=== PATIENT | female | born 1945 | race Two or more races ===

== ENCOUNTER 2020-02-16 22:16 | Inpatient (IN) | payer BC ==
[~2020-02-16] VITALS: Ht 172.7 cm; Wt 60.3 kg
--- NOTE | 2020-02-16 22:18 | NUR ---
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 PT GIVEN 6MG ADENOSINE BY PARAMEDICS. PT'S HR UPON ARRIVAL 96. NO MEDICAL COMPLAINTS AT THIS TIME. PT AAOX4, RESPIRATIONS EVEN AND UNLABORED ON RA W/ AND NOTED. Addendum: 02/17/20 at 0150 by RENETTA PT TRANSFERRED TO ROOM IN STABLE CONDITION VIA ACLS PROTOCOL
[2020-02-16] MEDS ORDERED: IV NS 0.9% 500 ML BAG IV ONE (22:30)
--- NOTE | 2020-02-16 22:30 | NUR ---
WELDER OPERATOR AT BEDSIDE FOR BLOOD DRAW
[2020-02-16 22:49] LABS: BASOPHILS # (AUTO) 0.1 /CMM (0.0-0.2); BASOPHILS % (AUTO) 0.8 % (0.0-2.0); EOSINOPHILS % (AUTO) 2.5 % (0.0-6.0); HEMATOCRIT 29 % (33-45); HEMOGLOBIN 8.8 g/dL (11.5-14.8); LYMPHOCYTES # (AUTO) 0.2 /CMM (0.8-4.8); MEAN CORPUSCULAR HGB CONC 30 g/dl (31.0-36.0); MEAN CORPUSCULAR VOLUME 96 fL (82-100); MONOCYTES # (AUTO) 1.1 /CMM (0.1-1.30); MONOCYTES % (AUTO) 9.7 % (2.0-12.0); NEUTROPHILS # (AUTO) 9.8 /CMM (1.8-8.9); PLATELET COUNT (AUTO) 106 /CMM (150-450); WHITE BLOOD COUNT (AUTO) 11.6 K/uL (4.3-11.0)
[2020-02-16 23:00] LABS: CALCIUM, SERUM 8.5 mg/dL (8.5-10.1); CREATININE 1.2 mg/dL (0.6-1.3); POTASSIUM 4.7 mmol/L (3.5-5.1)
[2020-02-16 23:17] LABS: ALBUMIN 2.2 g/dL (3.4-5.0); BILIRUBIN,DIRECT 0.2 mg/dL (0.0-0.2); BILIRUBIN,TOTAL 0.4 mg/dL (0.2-1.0); TOTAL PROTEIN, SERUM 6.6 g/dL (6.4-8.2)
--- NOTE | 2020-02-16 23:35 | NUR ---
TELE 328-2
[2020-02-16] MEDS ORDERED: METO-295 PO (23:37)
[2020-02-16] MEDS ORDERED: CROM10DR2 OP (23:37)
[2020-02-16] MEDS ORDERED: ALLO300T2 PO (23:37)
[2020-02-16] MEDS ORDERED: FAMO20TA8 PO (23:37)
[2020-02-16] MEDS ORDERED: ZINC220T4 PO (23:37)
[2020-02-16] MEDS ORDERED: POLY17PO4 PO (23:37)
[2020-02-16] MEDS ORDERED: METO25TA4 PO (23:37)
[2020-02-16] MEDS ORDERED: VIT500LI PO (23:37)
[2020-02-16] MEDS ORDERED: PRED5TAB48 PO (23:37)
[2020-02-16 23:44] LABS: D-DIMER 16.7 mg/L(FEU (0.17-0.50)
[2020-02-16] MEDS ORDERED: IV NS 0.9% 250 ML IV ONE (23:57)
[2020-02-16] MEDS ORDERED: IOHEXOL-350 100 ML VIAL IV ONE (23:57)
[2020-02-16] MEDS ORDERED: CT SWABBABLE VALVE TRANS SET 1 EA INFUS.SET MC ONE (23:57)
[2020-02-17] MEDS ORDERED: ONDANSETRON HCL/PF 4 MG/2 ML VIAL IVP PRN
[2020-02-17] MEDS ORDERED: ALBUTEROL SULFATE 8 GM HFA.AER.AD IH PRN
[2020-02-17] MEDS ORDERED: MAGNESIUM HYDROXIDE 30 ML UDC PO PRN
[2020-02-17] MEDS ORDERED: LORAZEPAM 0.5 MG TABLET PO PRN
[2020-02-17] MEDS ORDERED: ZOLPIDEM TARTRATE 5 MG TABLET PO PRN
[2020-02-17] MEDS ORDERED: ACETAMINOPHEN 325 MG TABLET PO PRN
--- NOTE | 2020-02-17 00:15 | NUR ---
PER PT, SHE WAS UNDECIDED IF SHE IS GOING TO DO THE CT OR NOT. PER PT SHE IS GOING TO CALL HER PMD.
--- NOTE | 2020-02-17 00:23 | NUR ---
BED 115-2
--- NOTE | 2020-02-17 00:35 | NUR ---
PT IS STILL ON THE PHONE W/ HER HER PMD IN REGARDS IF PT CAN HAVE CT SCAN OR NOT.
--- NOTE | 2020-02-17 00:50 | NUR ---
PT AGREED W/ CT ANGIOGRAM.
--- NOTE | 2020-02-17 00:55 | NUR ---
PT TAKEN TO CT
[2020-02-17 01:20] LABS: C-REACTIVE PROTEIN 4.8 mg/dL (0.0-0.9); CREATINE KINASE, TOTAL 29 U/L (26-192); FERRITIN 10556 ng/mL (8-388)
--- NOTE | 2020-02-17 01:20 | NUR ---
PT BACK FROM CT
--- NOTE | 2020-02-17 01:33 | NUR ---
300 ML URINE OUTPUT NOTED. YELLOW, CLEAR, NO ODOR.
[2020-02-17 01:40] LABS: APPEARANCE,URINE Clear (CLEAR); BILIRUBIN,URINE Negative (NEGATIVE); BLOOD, URINE Moderate Ery/uL (NEGATIVE); COLOR,URINE Dark (YELLOW); KETONES,URINE Negative (NEGATIVE); LEUKOCYTE ESTERASE ,URINE Negative (NEGATIVE); NITRITE, URINE Negative (NEGATIVE); PH,URINE 5.5 (5.0-8.0); PROTEIN,URINE 100 mg/dl (NEGATIVE); UGLUCOSE Negative (NEGATIVE); UROBILINOGEN,URINE 0.2 EU/dL (0.2)
[2020-02-17 01:50] VITALS: BP 119/76
--- NOTE | 2020-02-17 01:50 | NUR ---
RN NOTE RECEIVED PT FROM ER VIA GURNEY ACCOMPANIED BY 2 RNS AND TRANSFERRED TO BED VIA 2 PERSON ASSIST. PT IS ALERT AND ORIENTED X 3. PT ON ROOM AIR WITH RESPIRATIONS EVEN AND UNLABORED. COMPREHENSIVE PHYSICAL ASSESSMENT DONE. CALL LIGHT WITHIN REACH, SAFETY MEASURES IN PLACE, WILL MONITOR.
[2020-02-17 02:22] LABS: BACTERIA,URINE Few /HPF (None Seen); SQUAMOUS EPITHELIAL CELL,UR Few /HPF (None Seen); WBC,URINE 21-50 /HPF (0-3)
[2020-02-17] MEDS ORDERED: FUROSEMIDE 40 MG/4 ML VIAL IV ONE (02:30)
[2020-02-17] MEDS ORDERED: PIPERACILLIN /TAZOBACTAM 3.375 G in IV D5W 100 ML IV ONE (02:30)
[2020-02-17] MEDS ORDERED: VANCOMYCIN 1.5 GM in IV D5W 500 ML IV ONE (03:00)
--- NOTE | 2020-02-17 03:29 | NUR ---
0329 CRITICAL LACTIC ACID RESULT 2.7 RELAYED TO TRICIA CHURCHILL WITH NO NEW ORDER MADE.
[2020-02-17] MEDS ORDERED: VANCOMYCIN 1 GM VIAL ONE (03:56)
[2020-02-17] MEDS ORDERED: PIPERACILLIN /TAZOBACTAM 3.375 G VIAL IV ONE (03:56)
[2020-02-17 04:00] VITALS: BP 121/68
[2020-02-17 04:32] LABS: BASOPHILS # (AUTO) 0.1 /CMM (0.0-0.2); BASOPHILS % (AUTO) 0.7 % (0.0-2.0); EOSINOPHILS % (AUTO) 5.4 % (0.0-6.0); HEMATOCRIT 27 % (33-45); HEMOGLOBIN 8.5 g/dL (11.5-14.8); LYMPHOCYTES # (AUTO) 0.3 /CMM (0.8-4.8); LYMPHOCYTES % (AUTO) 2.3 % (20.0-44.0); MEAN CORPUSCULAR HGB CONC 31 g/dl (31.0-36.0); MEAN CORPUSCULAR VOLUME 94 fL (82-100); MONOCYTES # (AUTO) 1.2 /CMM (0.1-1.30); MONOCYTES % (AUTO) 10.7 % (2.0-12.0); NEUTROPHILS # (AUTO) 9.2 /CMM (1.8-8.9); NEUTROPHILS % (AUTO) 80.9 % (43.0-81.0); PLATELET COUNT (AUTO) 93 /CMM (150-450); RED BLOOD CELL COUNT(AUTO) 2.88 MIL/uL (4.0-5.2); WHITE BLOOD COUNT (AUTO) 11.4 K/uL (4.3-11.0)
[2020-02-17 04:45] LABS: ALBUMIN 2.2 g/dL (3.4-5.0); ALKALINE PHOSPHATASE 144 U/L (46-116); ASPARTATE AMINOTRANSFERASE 11 U/L (15-37); BILIRUBIN,TOTAL 0.5 mg/dL (0.2-1.0); CALCIUM, SERUM 7.5 mg/dL (8.5-10.1); CARBON DIOXIDE 25 mmol/L (21-32); CHLORIDE 109 mmol/L (98-107); GLUCOSE 106 mg/dL (74-106); PHOSPHORUS 4.1 mg/dL (2.5-4.9); POTASSIUM 4.6 mmol/L (3.5-5.1); SODIUM SERUM 144 mmol/L (136-145); TOTAL PROTEIN, SERUM 6.2 g/dL (6.4-8.2); UREA NITROGEN, BLOOD 24 mg/dL (7-18)
[2020-02-17 04:46] LABS: MAGNESIUM 1.2 mg/dL (1.8-2.4)
[2020-02-17 04:53] LABS: CHOLESTEROL 63 mg/dL (<200); HDL CHOLESTEROL 31 mg/dL (40-60); LDL 29 mg/dL (0-99); LYMPHOCYTES % (MANUAL) 3 % (16-48); MONOCYTES % (MANUAL) 8 % (0-11.0); THYROID STIMULATING HORMONE 2.098 uIU/mL (0.358-3.74); TRIGLYCERIDES 63 mg/dL (30-150)
[2020-02-17 04:54] LABS: EOSINOPHILS % (MANUAL) 3 % (0-4); NEUTROPHILS % (MANUAL) 86 (42-76)
[2020-02-17 04:55] LABS: ALANINE AMINOTRANSFERASE 6 U/L (12-78)
--- NOTE | 2020-02-17 04:55 | NUR ---
4268 TRICIA CHURCHILL MADE AWARE OF CRITICAL TROP .091 WITH NO ORDER MADE.
--- NOTE | 2020-02-17 06:38 | NUR ---
RN NOTE NOTIFIED PHARMACY THAT ZOSYN 3.375G IV WAS GIVEN LATE.
--- NOTE | 2020-02-17 06:48 | NUR ---
RN CLOSING NOTE PT ALERT AND ORIENTED RESTING IN BED IN SEMI MORAN'S POSITION. RESPIRATIONS EVEN AND UNLABORED WHILE ON ROOM AIR. ALL NEEDS MET AND ATTENDED TO. CALL LIGHT WITHIN REACH, SAFETY MEASURES IN PLACE, WILL ENDORSE TO MORNING RN FOR CONTINUATION OF CARE.
--- NOTE | 2020-02-17 07:45 | NUR ---
SECURITY ASSURANCE SPECIALIST OPENING NOTES: RECEIVED PT ALERT AND ORIENTEDX4 IN BED RESTING COMFORTABLY. PATIENT IN NO S/SX OF ACUTE DISTRESS AT THIS TIME. NO SOB NOTED. PATIENT'S BREATHING IS EVEN AND UNLABORED IN RA. PATIENT ON CARDIAC MONITORING READING SINUS RHYTHM HR IS @92. NOTED IV SITE ON R WRIST 20 G ; PATENT IN INTACT. PATIENT HAS COLOSTOMY BAG IN PLACED; INTACT. PATIENT HAS SACRAL SCAR AND BILATERAL KNEE SCABS. SAFETY MEASURES HAVE BEEN PROVIDED AND IMPLEMENTED. PATIENT BED ALARM IS ON. HEAD OF BED ELEVATED. BED IS LOCKED, IN LOWEST POSITION AND SIDE RAILS UP. CALL LIGHT WITHIN REACH OF THE PATIENT. WILL CONTINUE TO MONITOR AND REASSESS FOR ANY CHANGES.
[2020-02-17 08:00] VITALS: BP_SYST 120; BP_SYST 122; BP_DIAS 66
[2020-02-17] MEDS ORDERED: MAG30ORA PO (08:29)
[2020-02-17] MEDS ORDERED: RUXOLITINIB PO (08:29)
[2020-02-17] MEDS ORDERED: BISA10SU11 RC (08:29)
[2020-02-17] MEDS ORDERED: MAGN400O6 PO (08:29)
[2020-02-17] MEDS ORDERED: ACET-868 PO (08:29)
[2020-02-17] MEDS ORDERED: PRED10TA PO (08:29)
[2020-02-17] MEDS ORDERED: DIPH1TAB PO (08:29)
[2020-02-17] MEDS ORDERED: FOLI0.4T2 PO (08:29)
[2020-02-17] MEDS ORDERED: NA P133E RC (08:29)
[2020-02-17] MEDS ORDERED: CROM20SO PO (08:29)
[2020-02-17] MEDS ORDERED: ALBU18HF2 IH (08:29)
[2020-02-17] MEDS ORDERED: METOCLOPRAMIDE HCL 10 MG TABLET PO SCH (09:00)
[2020-02-17] MEDS: ASCORBIC ACID 500 MG TABLET PO SCH (09:33)
[2020-02-17] MEDS: POLYETHYLENE GLYCOL 3350 17 GM POWD.PACK PO SCH (09:33)
[2020-02-17] MEDS: predniSONE 10 MG TABLET PO SCH (09:33)
[2020-02-17] MEDS: FAMOTIDINE (20 MG) 20 MG TABLET PO SCH ×2 (09:33→16:13)
[2020-02-17] MEDS: Magnesium 1GM/D5W 100ML PREMIX 100 ML IV SCH ×4 (09:34→13:09)
[2020-02-17] MEDS: ZINC SULFATE 220 MG CAPSULE PO SCH (09:34)
[2020-02-17] MEDS: ALLOPURINOL 100 MG TABLET PO SCH (09:34)
[2020-02-17 09:59] LABS: THYROID STIMULATING HORMONE 2.092 uIU/mL (0.358-3.74)
--- NOTE | 2020-02-17 10:23 | NUR ---
WOUND CARE CONSULT: REVIEWED CHART, PHOTO DOCUMENTATION AND NURSING DOCUMENTATION WHICH SHOWS SACRAL SCAR, PRESENT ON ADMISSION. RECOMMENDATIONS MADE FOR SKIN PROTECTION. DR BLANCO NOTIFIED OF SURGICAL CONSULT REQUEST. IN AGREEMENT WITH PLAN OF CARE. CURRENT JIM SCORE IS 15.
[2020-02-17] MEDS: Z GUARD REMEDY 2 OZ OINT TP SCH (10:30)
[2020-02-17] MEDS ORDERED: Z GUARD REMEDY 2 OZ OINT TP PRN (10:30)
[2020-02-17] MEDS ORDERED: CROMOLYN SODIUM OP SCH (11:30)
--- NOTE | 2020-02-17 11:39 | NUR ---
FOLLOW UP COVID RESULT STILL PENDING.
[2020-02-17 12:00] VITALS: BP 122/70
[2020-02-17] MEDS: PIPERACILLIN /TAZOBACTAM 3.375 G in IV D5W 50 ML IV SCH ×3 (12:16→23:48)
[2020-02-17] MEDS ORDERED: FEE PK DOSING 1 MIN EA MC ONE (14:34)
[2020-02-17 16:00] VITALS: BP 122/63
[2020-02-17] MEDS: THERAHONEY GEL 1.5 OZ TUBE TP SCH (16:00)
[2020-02-17] MEDS: ENOXAPARIN SODIUM 40 MG/0.4 ML DISP.SYRIN SQ SCH (16:13)
--- NOTE | 2020-02-17 16:16 | NUR ---
FOLLOWUP COVID RESULTS STILL PENDING.
--- NOTE | 2020-02-17 17:10 | NUR ---
RN NOTE MRSA SWAB DONE, NOTIFIED LAB TO COLLECT THE SPECIMEN.
[2020-02-17] MEDS: METOPROLOL SUCCINATE 25 MG TAB.SR.24H PO SCH (17:27)
--- NOTE | 2020-02-17 17:55 | NUR ---
Called pharmacy to verify if vancomycin can be administered without vanco trough level. Pharamcy staff said ok to give. Will administer as ordered.
[2020-02-17] MEDS: VANCOMYCIN 0.75 GM in IV D5W 250 ML IV SCH (18:10)
--- NOTE | 2020-02-17 18:32 | NUR ---
THEOLOGY PROFESSOR - CLOSING NOTES: PATIENT IN BED RESTING COMFORTABLY. PATIENT IN NO ACUTE DISTRESS. NO SOB NOTED, PT BREATHING IS EVEN AND UNLABORED. PATIENT IS ON ROOM AIR, SP02 >95%. PATIENT ON CARDIAC MONITORING READING SINUS RHYTHM HR IS @96. PATIENT STATES NO PAIN AT THIS TIME. PATIENT IS CLEAN , DRY AND COMFORTABLE THROUGHOUT THE SHIFT. NEEDS AND CONCERNS ADDRESSED. SAFETY MEASURES IN PLACED. PATIENT BED IS LOCKED AND IN LOWEST POSITION. SIDE RAILS UP. CALL LIGHT WITHIN REACH OF THE PATIENT. WILL ENDORSE TO PM SHIFT FOR FELIPE.
[2020-02-17 20:00] VITALS: BP 114/63
[2020-02-18] VITALS: BP 122/68
[2020-02-18 04:00] VITALS: BP 121/74
--- NOTE | 2020-02-18 05:15 | NUR ---
rn notes alert, awake in bed watching tv. oriented x 4. no distress noted. breathing even and unlabored, room air well tolerated no complaint of pain or discomfort. vital signs wnl. lab called at 0515 for negative covid result. kept clean and dry. will endorse to next shift for continuity of care.
--- NOTE | 2020-02-18 05:18 | NUR ---
RN NOTES 0515 COVID RESULT NEGATIVE. KT, HOT DOG VENDOR NOTIFIED. ASKED DR. PATI BULL IF OK TO TRANSFER TO NON COVID UNIT. PER PATI, TO WAIT FOR DAY PHYSICIAN TO ASSESS THE PATIENT FIRST. KT NOTIFIED. PRIMARY RN, KLEVER MADE AWARE
[2020-02-18] MEDS: VANCOMYCIN 0.75 GM in IV D5W 250 ML IV SCH ×2 (05:28→17:20)
[2020-02-18] MEDS: PIPERACILLIN /TAZOBACTAM 3.375 G in IV D5W 50 ML IV SCH ×3 (05:28→17:22)
[2020-02-18 06:23] LABS: BASOPHILS # (AUTO) 0.1 /CMM (0.0-0.2); BASOPHILS % (AUTO) 0.4 % (0.0-2.0); EOSINOPHILS % (AUTO) 5.2 % (0.0-6.0); HEMATOCRIT 27 % (33-45); HEMOGLOBIN 8.4 g/dL (11.5-14.8); LYMPHOCYTES # (AUTO) 0.2 /CMM (0.8-4.8); LYMPHOCYTES % (AUTO) 1.3 % (20.0-44.0); MEAN CORPUSCULAR HGB CONC 31 g/dl (31.0-36.0); MEAN CORPUSCULAR VOLUME 94 fL (82-100); MONOCYTES # (AUTO) 1.5 /CMM (0.1-1.30); NEUTROPHILS # (AUTO) 11.5 /CMM (1.8-8.9); NEUTROPHILS % (AUTO) 82.1 % (43.0-81.0); PLATELET COUNT (AUTO) 94 /CMM (150-450); RED BLOOD CELL COUNT(AUTO) 2.87 MIL/uL (4.0-5.2)
[2020-02-18 07:03] LABS: ALBUMIN 2.1 g/dL (3.4-5.0); BILIRUBIN,TOTAL 0.5 mg/dL (0.2-1.0); CALCIUM, SERUM 7.6 mg/dL (8.5-10.1); CREATININE 0.9 mg/dL (0.6-1.3); MAGNESIUM 1.7 mg/dL (1.8-2.4); PHOSPHORUS 3.7 mg/dL (2.5-4.9); POTASSIUM 3.6 mmol/L (3.5-5.1); TOTAL PROTEIN, SERUM 6.4 g/dL (6.4-8.2)
--- NOTE | 2020-02-18 07:30 | NUR ---
Tele/RN Opening note Received patient AO x 3-4, able to responds all stimuli. Pt denies pain or any discomfort, skin is warm to touch, kept clean/dry. Respiratory even and unlabored with room air, no sob or distress observed. Keep low portion of the bed with locked wheel and elevated head of bed. Call light within reach, will continue to monitor.
[2020-02-18 08:00] VITALS: BP 116/72
[2020-02-18] MEDS: ZINC SULFATE 220 MG CAPSULE PO SCH (08:24)
[2020-02-18] MEDS: FAMOTIDINE (20 MG) 20 MG TABLET PO SCH ×2 (08:24→17:22)
[2020-02-18] MEDS: ASCORBIC ACID 500 MG TABLET PO SCH (08:24)
[2020-02-18] MEDS: ALLOPURINOL 100 MG TABLET PO SCH (08:24)
[2020-02-18] MEDS: POLYETHYLENE GLYCOL 3350 17 GM POWD.PACK PO SCH (08:25)
[2020-02-18] MEDS: Z GUARD REMEDY 2 OZ OINT TP SCH (08:25)
[2020-02-18] MEDS: THERAHONEY GEL 1.5 OZ TUBE TP SCH (08:25)
[2020-02-18] MEDS: predniSONE 10 MG TABLET PO SCH (08:25)
[2020-02-18] MEDS: Magnesium 1GM/D5W 100ML PREMIX 100 ML IV SCH ×2 (10:21→11:01)
[2020-02-18 10:35] VITALS: BP 116/72
--- NOTE | 2020-02-18 11:40 | NUR ---
Patient transferred 3W room 311-1, given report Misty/RN. Pt in stable condition, latest v/s: bp-129/75, p-76, r-18, O2sat 97%, t-98.6.
--- NOTE | 2020-02-18 12:00 | NUR ---
MS RN RECEIVED PATIENT FROM DEIDRA, REPORT GIVEN BY ALANNA, PATIENT IS AWAKE,ALERT,ORIENTED X4,NOT IN ANY FORM OF DISTRESS, RESPIRATIONS EVEN AND UNLABORED,NO SOB NOTED, LUNGS ARE DIMINISHED,ABDOMEN SOFT,POSITIVE BOWEL SOUNDS,DENIES PAIN AT THIS TIME,ALL NEEDS ATTENDED.
[2020-02-18] MEDS: POTASSIUM CHLORIDE 20 MEQ TAB.PRT.SR PO SCH ×2 (14:19→15:13)
[2020-02-18 16:00] VITALS: BP_SYST 116; BP_SYST 122; BP_DIAS 65; BP_DIAS 72
--- NOTE | 2020-02-18 16:00 | NUR ---
MS RN ON BED, CHANGED IV SITE TO RIGHT UPPER ARM W/ GOOD VENOUS FLOW, DENIES PAIN AT THIS TIME,ALL NEEDS ATTENDED.
[2020-02-18] MEDS: ENOXAPARIN SODIUM 40 MG/0.4 ML DISP.SYRIN SQ SCH (16:46)
[2020-02-18] MEDS: METOPROLOL SUCCINATE 25 MG TAB.SR.24H PO SCH (17:23)
--- NOTE | 2020-02-18 18:46 | NUR ---
MS RN ON BED, NO DISTRESS NOTED.
[2020-02-18 20:00] VITALS: BP 124/77
--- NOTE | 2020-02-18 20:00 | NUR ---
PRESSING MACHINE TENDER OPENING NOTE RECEIVED PATIENT IN BED. A/O X3-4 . TOLERATING ROOM AIR. RESPIRATIONS ARE EVEN AND UNLABORED. NO S/S SOB NOTED. NO C/O PAIN AT THIS TIME. EXTERNAL TELE MONITOR READS SR. IN NO APPARENT DISTRESS. IV ACCESS IN RFA#22 RUNNING TKO. BED I SLOW AND LOCKED, HOB ELEVATED IN SEMI FOWLERS, SIDE RIALS UP X2. CALL LIGHT WITHIN REACH. WILL CONTINUE TO MONITOR.
--- NOTE | 2020-02-18 20:08 | NUR ---
GAS TURBINE POWERPLANT MECHANIC NOTE TRANSFER CARE/ FELIPE TO GOPAL YEN.
[2020-02-19] VITALS: BP 121/75
[2020-02-19] MEDS: PIPERACILLIN /TAZOBACTAM 3.375 G in IV D5W 50 ML IV SCH ×4 (00:39→17:02)
[2020-02-19 04:00] VITALS: BP 127/68
[2020-02-19] MEDS: VANCOMYCIN 0.75 GM in IV D5W 250 ML IV SCH ×2 (05:56→17:44)
--- NOTE | 2020-02-19 06:31 | NUR ---
CRIME INVESTIGATOR SPECIAL AGENT NOTES AWAKE & RESPONSIVE. NOT IN ANY DISTRESS. NO SOB NOTED. DENIES ANY PAIN OR DISCOMFORT AT THIS TIME. ON TELE SR @ 94 WITH IVF INFUSING WELL. AM CARE DONE. MONITORED ACCORDINGLY. CALL LIGHT WITHIN REACH. BED IN LOWEST POSITION. SR UP X 2 FOR SAFETY. WILL ENDORSE TO NEXT SHIFT.
[2020-02-19 06:49] LABS: BASOPHILS % (AUTO) 0.3 % (0.0-2.0); EOSINOPHILS % (AUTO) 6.8 % (0.0-6.0); HEMATOCRIT 28 % (33-45); HEMOGLOBIN 8.9 g/dL (11.5-14.8); LYMPHOCYTES # (AUTO) 0.2 /CMM (0.8-4.8); LYMPHOCYTES % (AUTO) 1.1 % (20.0-44.0); MEAN CORPUSCULAR HGB CONC 31 g/dl (31.0-36.0); MEAN CORPUSCULAR VOLUME 95 fL (82-100); MONOCYTES # (AUTO) 1.6 /CMM (0.1-1.30); MONOCYTES % (AUTO) 10.3 % (2.0-12.0); NEUTROPHILS # (AUTO) 12.3 /CMM (1.8-8.9); NEUTROPHILS % (AUTO) 81.5 % (43.0-81.0); PLATELET COUNT (AUTO) 107 /CMM (150-450); RED BLOOD CELL COUNT(AUTO) 2.99 MIL/uL (4.0-5.2); WHITE BLOOD COUNT (AUTO) 15.1 K/uL (4.3-11.0)
[2020-02-19 07:28] LABS: CALCIUM, SERUM 7.7 mg/dL (8.5-10.1); CREATININE 0.9 mg/dL (0.6-1.3); MAGNESIUM 1.7 mg/dL (1.8-2.4); PHOSPHORUS 3.5 mg/dL (2.5-4.9); POTASSIUM 3.7 mmol/L (3.5-5.1)
--- NOTE | 2020-02-19 08:00 | NUR ---
TELE OPENING NOTES RECEIVED PATIENT FROM MANAGER MEETING NURSE IN BED, AWAKE, CONSCIOUS, COOPERATIVE AND COHERENT, BREATHING AT ROOM AIR, NO SIGNS OF RESPIRATORY DISTRESS, RFA NS TKO #22G, COLOSTOMY ATTACHED, SIDE RAILS UP.
[2020-02-19] MEDS: ASCORBIC ACID 500 MG TABLET PO SCH (09:21)
[2020-02-19] MEDS: ALLOPURINOL 100 MG TABLET PO SCH (09:21)
[2020-02-19] MEDS: ZINC SULFATE 220 MG CAPSULE PO SCH (09:21)
[2020-02-19] MEDS: POLYETHYLENE GLYCOL 3350 17 GM POWD.PACK PO SCH (09:22)
[2020-02-19] MEDS: FAMOTIDINE (20 MG) 20 MG TABLET PO SCH ×2 (09:22→16:58)
[2020-02-19] MEDS: predniSONE 10 MG TABLET PO SCH (09:22)
[2020-02-19] MEDS: Z GUARD REMEDY 2 OZ OINT TP SCH (09:25)
[2020-02-19] MEDS: THERAHONEY GEL 1.5 OZ TUBE TP SCH (09:43)
[2020-02-19] MEDS ORDERED: Magnesium 1GM/D5W 100ML PREMIX 100 ML IV SCH (10:25)
[2020-02-19] MEDS: Magnesium 1GM/D5W 100ML PREMIX 100 ML IV SCH ×2 (10:51→12:10)
[2020-02-19] MEDS ORDERED: POTASSIUM CHLORIDE 20 MEQ TAB.PRT.SR PO SCH (11:00)
--- NOTE | 2020-02-19 15:00 | NUR ---
TELE NOTES PATIENT WAS BROUGHT DOWN STAIRS FOR [facility] ULTRASOUND GUIDANCE.
[2020-02-19] MEDS: ENOXAPARIN SODIUM 40 MG/0.4 ML DISP.SYRIN SQ SCH (15:30)
[2020-02-19 16:00] VITALS: BP 122/71
--- NOTE | 2020-02-19 16:00 | NUR ---
TELE NOTES PATIENT IS BACK FROM [facility] WITH ULTRASOUND GUIDANCE.
--- NOTE | 2020-02-19 16:48 | NUR ---
TELE NOTES LOVENOX 40MG/0.4ML HOLD PER MD.
[2020-02-19] MEDS: METOPROLOL SUCCINATE 25 MG TAB.SR.24H PO SCH (17:49)
--- NOTE | 2020-02-19 19:17 | NUR ---
FIRE SUPERVISOR CLOSING NOTES ENDORSED PATIENT TO NIGHT NURSE IN BED, AWAKE, CONSCIOUS, COOPERATIVE, COHERENT, BREATHING AT ROOM AIR, NO SIGNS OF RESPIRATORY DISTRESS, RFA NS AT TKO #22G, NO REDNESS OR INFILTRATION NOTED, COLOSTOMY ATTACHED WITH 2OOML OUTPUT.
[2020-02-19 20:00] VITALS: BP 128/72
--- NOTE | 2020-02-19 20:13 | NUR ---
Received patient from nurse Mohit YEN. Patient is alert and oriented. Able to communicate her needs. Colostomy in place and draining well. Denies pain and any apparent discomfort at this time. Will required help repositioning in bed. Will continue to monitor.
[2020-02-20] MEDS: PIPERACILLIN /TAZOBACTAM 3.375 G in IV D5W 50 ML IV SCH ×5 (00:23→23:20)
[2020-02-20] MEDS: VANCOMYCIN 0.75 GM in IV D5W 250 ML IV SCH ×2 (06:14→17:39)
[2020-02-20 06:48] LABS: CALCIUM, SERUM 7.7 mg/dL (8.5-10.1); CREATININE 0.9 mg/dL (0.6-1.3); MAGNESIUM 1.8 mg/dL (1.8-2.4); PHOSPHORUS 3.8 mg/dL (2.5-4.9); POTASSIUM 3.7 mmol/L (3.5-5.1)
--- NOTE | 2020-02-20 07:34 | NUR ---
rn opening notes patient received on room air, no sob noted, a/o x3 at this tiem. Colostomy bag present, NS @ tko RFA 22 gauge present. Bed at the lowest setting, call light within reach, side rails up x2.
[2020-02-20 08:00] VITALS: BP 120/70
[2020-02-20 08:44] LABS: BASOPHILS # (AUTO) 0.1 /CMM (0.0-0.2); EOSINOPHILS % (AUTO) 7.2 % (0.0-6.0); HEMATOCRIT 29 % (33-45); LYMPHOCYTES # (AUTO) 0.2 /CMM (0.8-4.8); LYMPHOCYTES % (AUTO) 1.7 % (20.0-44.0); MEAN CORPUSCULAR HGB CONC 31 g/dl (31.0-36.0); MEAN CORPUSCULAR VOLUME 94 fL (82-100); MONOCYTES # (AUTO) 1.5 /CMM (0.1-1.30); NEUTROPHILS # (AUTO) 10.9 /CMM (1.8-8.9); NEUTROPHILS % (AUTO) 79.1 % (43.0-81.0); PLATELET COUNT (AUTO) 123 /CMM (150-450); RED BLOOD CELL COUNT(AUTO) 3.08 MIL/uL (4.0-5.2); WHITE BLOOD COUNT (AUTO) 13.8 K/uL (4.3-11.0)
[2020-02-20] MEDS: POLYETHYLENE GLYCOL 3350 17 GM POWD.PACK PO SCH (08:44)
[2020-02-20] MEDS: ZINC SULFATE 220 MG CAPSULE PO SCH (08:55)
[2020-02-20] MEDS: predniSONE 10 MG TABLET PO SCH (08:55)
[2020-02-20] MEDS: FAMOTIDINE (20 MG) 20 MG TABLET PO SCH ×2 (08:55→16:20)
[2020-02-20] MEDS: FUROSEMIDE 40 MG TABLET PO SCH (08:56)
[2020-02-20] MEDS: ALLOPURINOL 100 MG TABLET PO SCH (08:56)
[2020-02-20] MEDS: ASCORBIC ACID 500 MG TABLET PO SCH (08:56)
[2020-02-20] MEDS: POTASSIUM CHLORIDE 20 MEQ TAB.PRT.SR PO SCH (08:56)
[2020-02-20] MEDS: Z GUARD REMEDY 2 OZ OINT TP SCH (08:57)
[2020-02-20] MEDS: THERAHONEY GEL 1.5 OZ TUBE TP SCH (08:57)
[2020-02-20] MEDS: CARVEDILOL 12.5 MG TABLET PO SCH ×2 (08:58→20:56)
[2020-02-20] MEDS: ENOXAPARIN SODIUM 40 MG/0.4 ML DISP.SYRIN SQ SCH (15:24)
[2020-02-20 16:00] VITALS: BP 105/63
--- NOTE | 2020-02-20 18:20 | NUR ---
rn notes patient remains on room air, no sob noted, patient denies pain at this time. Colostomy present and is not showing any redness or leaks. R FA 22 TKO at this time. DC planning in the morning. Bed at the lowest setting, call light within reach, side rails up x2.
--- NOTE | 2020-02-20 19:12 | NUR ---
MS RN NOTES PATIENT RECEIVED IN BED SLEEPING, EASILY AWAKEN BY NAME AND LIGHT TOUCH. ALERT AND ORIENTED X 3. PATIENT ON ROOM AIR WITH NO SIGNS OF SOB, NO SIGNS OF RESPIRATORY DISTRESS AT THIS TIME, AND WITH EVEN NON-LABORED BREATHING. PATIENT IV INTACT AND PATENT. COLOSTOMY, INTACT AND PATENT. DENIES ANY PAIN OR DISCOMFORT AT THIS TIME. SAFETY PRECAUTIONS IN PLACE WITH BED LOCKED, BILATERAL SIDE RAILS UP, BED IN THE LOWEST POSITION, AND CALL LIGHT WITHIN EASY REACH OF THE PATIENT. WILL CONTINUE TO MONITOR PATIENT.
[2020-02-20 20:00] VITALS: BP 116/69
[2020-02-21] MEDS: PIPERACILLIN /TAZOBACTAM 3.375 G in IV D5W 50 ML IV SCH ×4 (05:13→23:34)
[2020-02-21 05:32] LABS: BASOPHILS # (AUTO) 0.1 /CMM (0.0-0.2); BASOPHILS % (AUTO) 0.5 % (0.0-2.0); EOSINOPHILS % (AUTO) 9.3 % (0.0-6.0); HEMATOCRIT 27 % (33-45); HEMOGLOBIN 8.5 g/dL (11.5-14.8); LYMPHOCYTES # (AUTO) 0.3 /CMM (0.8-4.8); LYMPHOCYTES % (AUTO) 2.5 % (20.0-44.0); MEAN CORPUSCULAR HGB CONC 31 g/dl (31.0-36.0); MEAN CORPUSCULAR VOLUME 93 fL (82-100); MONOCYTES # (AUTO) 1.3 /CMM (0.1-1.30); MONOCYTES % (AUTO) 11.5 % (2.0-12.0); NEUTROPHILS # (AUTO) 8.6 /CMM (1.8-8.9); NEUTROPHILS % (AUTO) 76.2 % (43.0-81.0); PLATELET COUNT (AUTO) 120 /CMM (150-450); RED BLOOD CELL COUNT(AUTO) 2.93 MIL/uL (4.0-5.2); WHITE BLOOD COUNT (AUTO) 11.2 K/uL (4.3-11.0)
--- NOTE | 2020-02-21 06:33 | NUR ---
MS RN NOTES PATIENT IN BED SLEEPING EASILY AWAKEN BY NAME AND LIGHT TOUCH. PATIENT ON ROOM AIR WITH NO SIGNS OF RESPIRATORY DISTRESS PRESENT, WITH EVEN NON-LABORED BREATHING. IV ACCESS INTACT AND PATENT. SKIN KEPT CLEAN AND DRY, AND IV ACCESS INTACT AND PATENT. COLOSTOMY BAG INTACT. PATIENT DENIES PAIN AND DISCOMFORT AT THIS TIME. SAFETY PRECAUTIONS IN PLACE WITH BED IN THE LOWEST POSITION, BED LOCKED, BED ALARM ON, BILATERAL SIDE RAILS UP, AND CALL LIGHT WITHIN EASY REACH OF PATIENT. WILL ENDORSE PLAN OF CARE TO UPCOMING DAYSHIFT NURSE.
[2020-02-21 06:36] LABS: ALBUMIN 1.9 g/dL (3.4-5.0); BILIRUBIN,TOTAL 0.5 mg/dL (0.2-1.0); CALCIUM, SERUM 7.9 mg/dL (8.5-10.1); MAGNESIUM 1.5 mg/dL (1.8-2.4); PHOSPHORUS 4.1 mg/dL (2.5-4.9); POTASSIUM 3.7 mmol/L (3.5-5.1); TOTAL PROTEIN, SERUM 6.3 g/dL (6.4-8.2)
--- NOTE | 2020-02-21 06:54 | NUR ---
MS RN NOTES NOTIFIED PHARMACY, IN WHICH VANCO TROUGH RESULTS OF 22, HELD VANCOMYCIN. WILL ENDORSE TO UPCOMING DAYSHIFT NURSE.
[2020-02-21 06:56] LABS: CALCIUM, SERUM 7.8 mg/dL (8.5-10.1); CREATININE 0.9 mg/dL (0.6-1.3); POTASSIUM 3.7 mmol/L (3.5-5.1)
--- NOTE | 2020-02-21 07:45 | NUR ---
RN OPENING NOTE Patient is resting in bed, A/O x4, showing no signs of acute distress or SOB, spO2 >95% on RA. Patient has no complaints of pain at this time. IV line is clean and intact running TKO. Colostomy noted, and seda in the medial abdomen noted (dressing clean and dry). Bed is in lowest position, side rails x3 in upright position, call light is within reach, fall, safety and aspiration precautions enforced, will continue with plan of care.
[2020-02-21 08:00] VITALS: BP 105/61
[2020-02-21] MEDS: CARVEDILOL 12.5 MG TABLET PO SCH ×2 (09:00→20:22)
[2020-02-21] MEDS: Magnesium 1GM/D5W 100ML PREMIX 100 ML IV SCH ×2 (09:40→10:58)
[2020-02-21] MEDS: POTASSIUM CHLORIDE 20 MEQ TAB.PRT.SR PO SCH (09:40)
[2020-02-21] MEDS: ZINC SULFATE 220 MG CAPSULE PO SCH (09:40)
[2020-02-21] MEDS: predniSONE 10 MG TABLET PO SCH (09:41)
[2020-02-21] MEDS: ASCORBIC ACID 500 MG TABLET PO SCH (09:41)
[2020-02-21] MEDS: FUROSEMIDE 40 MG TABLET PO SCH (09:41)
[2020-02-21] MEDS: FAMOTIDINE (20 MG) 20 MG TABLET PO SCH ×2 (09:41→17:56)
[2020-02-21] MEDS: HYDROCODONE/APAP 5/325MG TABLET PO PRN (09:41)
[2020-02-21] MEDS: POLYETHYLENE GLYCOL 3350 17 GM POWD.PACK PO SCH (09:41)
[2020-02-21] MEDS: ALLOPURINOL 100 MG TABLET PO SCH (09:41)
[2020-02-21] MEDS: THERAHONEY GEL 1.5 OZ TUBE TP SCH (09:42)
[2020-02-21] MEDS: Z GUARD REMEDY 2 OZ OINT TP SCH (09:42)
--- NOTE | 2020-02-21 12:00 | NUR ---
RN NOTE Patient remains stable, colostomy bag changed, skin assessed, photos taken and placed in chart. Will continue to monitor.
[2020-02-21] MEDS: ENOXAPARIN SODIUM 40 MG/0.4 ML DISP.SYRIN SQ SCH (14:58)
[2020-02-21 16:00] VITALS: BP 110/61
--- NOTE | 2020-02-21 19:09 | NUR ---
RN NOTE VANCO ADJUSTED PER PHARMACY. WILL GIVE VANCO NOW.
[2020-02-21] MEDS: VANCOMYCIN 0.75 GM in IV D5W 250 ML IV SCH (19:14)
--- NOTE | 2020-02-21 19:34 | NUR ---
MS RN NOTES PATIENT IN BED RESTING COMFORTABLY, ALERT AND ORIENTED X 3-4. ON ROOM AIR WITH NO SIGNS OF RESPIRATORY DISTRESS, NO COMPLAINTS OF SOB, AND WITH EVEN NON-LABORED BREATHING. PATIENT SKIN WARM AND DRY TO TOUCH. IV ACCESS INTACT AND PATENT. COLOSTOMY BAG IN PLACE AND INTACT. ABDOMINAL DRESSING INTACT. SAFETY PRECAUTIONS IN PLACE WITH BED IN THE LOWEST POSITION, BED LOCKED, BED ALARM ON, BILATERAL SIDE RAILS UP, AND CALL LIGHT WITHIN EASY REACH OF PATIENT. WILL CONTINUE TO MONITOR PATIENT.
--- NOTE | 2020-02-21 19:54 | NUR ---
RN CLOSING NOTE Patient is resting in bed, A/O x4, showing no signs of acute distress or SOB, spO2 >95% on RA. Patient has no complaints of pain at this time. IV line is clean and intact running TKO. Patient has DC order, paperwork completed and photos taken and placed in chart. Per design center consultant, DC has been held due to SNF not having a bed available. Patient is aware. All patient needs met, all due medications given, patient kept clean and dry throughout shift, diaper changed x3 and colostomy bad emptied x2 and changed. Bed is in lowest position, side rails x3 in upright position, call light is within reach, fall, safety and aspiration precautions enforced, will endorse to overnight babysitter
[2020-02-21 20:00] VITALS: BP 114/69
[2020-02-22] MEDS: PIPERACILLIN /TAZOBACTAM 3.375 G in IV D5W 50 ML IV SCH ×4 (05:04→23:04)
--- NOTE | 2020-02-22 05:15 | NUR ---
MS RN NOTES PATIENT LAYING IN BED, STATES "I FEEL MY HEART RATE BEATING SO FAST." PATIENT DENIES ANY PAIN OR DISCOMFORT, HEART RATE 140. ADMINISTERED PRN ATIVAN 0.5 mg PO, BLOOD PRESSURE 100/70 HEART RATE 142, SPO2 97% ON ROOM AIR. NOTIFIED PATI BULL ROLL PICKER. ORDERED SLOW BOLUS OF NORMAL SALINE 500mL AND IV ATIVAN 0.5mg ONCE. PLACED PATIENT ON BUSHING PRESS OPERATOR FOR OBSERVATION. WILL CONTINUE TO MONITOR PATIENT.
[2020-02-22] MEDS ORDERED: LORAZEPAM INJ 2 MG/ML VIAL IV ONE (05:30)
[2020-02-22] MEDS ORDERED: IV NS 0.9% 500 ML IV ONE (05:30)
[2020-02-22 06:41] LABS: CREATININE 0.9 mg/dL (0.6-1.3); POTASSIUM 3.8 mmol/L (3.5-5.1)
--- NOTE | 2020-02-22 07:04 | NUR ---
RN NOTES NOTIFIED DR. ARANDA ON PATIENT CONDITION. ON TAIL EDGER FOR OBSERVATION, HEART RATE 155. PATIENT EASILY AWAKEN BY NAME AND LIGHT TOUCH. ON ROOM AIR, O2 SATURATION OF 98%, WITH NO SIGNS OF SOB PRESENT. IV ACCESS INTACT AND PATENT, CURRENTLY INFUSING SLOW IV BOLUS. PATIENT SKIN KEPT CLEAN AND DRY. COLOSTOMY BAG INTACT. MET ALL OF PATIENT'S NEEDS. PATIENT DENIES ANY PAIN OR DISCOMFORT AT THIS TIME. SAFETY PRECAUTIONS IN PLACE WITH BED IN THE LOWEST POSITION, BED LOCKED, BILATERAL SIDE RAILS UP, AND CALL LIGHT WITHIN EASY REACH OF PATIENT. WILL ENDORSE PLAN OF CARE TO DAYSHIFT NURSE.
--- NOTE | 2020-02-22 07:46 | NUR ---
MS/RN Adenosine Order given by Dr Francois for 12mg adenosine IVP X1. Nursing supervisor assembling made aware, will send TD nurse to push medication.
[2020-02-22 08:00] VITALS: BP_SYST 100; BP_SYST 84; BP_DIAS 60; BP_DIAS 65
[2020-02-22] MEDS ORDERED: ADENOSINE 6 MG/2 ML VIAL IVP ONE ×2 (08:00)
--- NOTE | 2020-02-22 08:11 | NUR ---
MS/RN Adenosine push Adenosine administered IVP by TD nurse. Will continue to monitor heart rate.
--- NOTE | 2020-02-22 08:17 | NUR ---
MS/automobile contract clerk Tele reading SVT, heart rate 162.
--- NOTE | 2020-02-22 08:18 | NUR ---
MS/RN EKG EKG at bedside, SVT, heart rate 164.
--- NOTE | 2020-02-22 08:20 | NUR ---
MS/RN Dr Francois Call placed to Dr Francois to inform that heart rate continues to be elevated despite adenosine 12mg being administered. -SVT 172.
[2020-02-22 08:35] LABS: MAGNESIUM 1.8 mg/dL (1.8-2.4); THYROID STIMULATING HORMONE 2.477 uIU/mL (0.358-3.74)
[2020-02-22] MEDS: FAMOTIDINE (20 MG) 20 MG TABLET PO SCH ×2 (08:37→16:05)
[2020-02-22] MEDS: ALLOPURINOL 100 MG TABLET PO SCH (08:38)
[2020-02-22] MEDS: predniSONE 10 MG TABLET PO SCH (08:38)
[2020-02-22] MEDS: POTASSIUM CHLORIDE 20 MEQ TAB.PRT.SR PO SCH ×3 (08:38→09:14)
[2020-02-22] MEDS: ASCORBIC ACID 500 MG TABLET PO SCH (08:38)
[2020-02-22] MEDS: POLYETHYLENE GLYCOL 3350 17 GM POWD.PACK PO SCH (08:39)
[2020-02-22] MEDS: ZINC SULFATE 220 MG CAPSULE PO SCH (08:39)
[2020-02-22] MEDS: CARVEDILOL 12.5 MG TABLET PO SCH ×2 (08:40→20:58)
[2020-02-22] MEDS: FUROSEMIDE 40 MG TABLET PO SCH (08:40)
[2020-02-22] MEDS: THERAHONEY GEL 1.5 OZ TUBE TP SCH (08:41)
--- NOTE | 2020-02-22 08:50 | NUR ---
MS/RN New orders New orders given by Dr Francois for amiodarone to be given IVP X1, and then infusion.
[2020-02-22] MEDS ORDERED: AMIODARONE 150 MG in IV D5W 100 ML IV ONE (09:00)
[2020-02-22] MEDS ORDERED: AMIODARONE 900 MG in IV D5W 500 ML IV PRN (09:00)
[2020-02-22] MEDS ORDERED: AMIODARONE 450 MG in IV D5W 250 ML IV PRN (09:00)
[2020-02-22] MEDS: Z GUARD REMEDY 2 OZ OINT TP SCH (09:15)
--- NOTE | 2020-02-22 09:46 | NUR ---
MS/RN Amiodarone Amiodarone 150mg given IVPB by TD nurse, awaiting bed in TD, nursing maintenance supervisor electrical made aware.
[2020-02-22 09:55] VITALS: BP 100/60
--- NOTE | 2020-02-22 10:18 | NUR ---
MS/handbag frames inspector rate Heart rate now 90's.
--- NOTE | 2020-02-22 10:26 | NUR ---
MS/RN Endorsement Patient endorsed to [facility].
--- NOTE | 2020-02-22 10:46 | NUR ---
RN NOTE UNABLE TO SCAN AMIODARONE, ASKS FOR DOSE, WHEN I INPUP THE DOSE, ANYTHING ABOVE 0MLS/HR SAYS THAT THE DOSE EXCEEDS. SPOKE TO PHARMACY UNABLE TO FIGURE OUT THE PROBLEM. PER PHARMACY, OK TO START THE INFUSION, WILL GET BACK TO ME LATER. AMIODARONE STARTED ORDERED. PATIENT SAFETY MAINTAINED, CALL LIGHT WITHIN REACH, WILL CONTINUE TO MONITOR.
[2020-02-22] MEDS ORDERED: AMIODARONE 450 MG in IV D5W 241 ML IV PRN ×2 (11:00→19:00)
[2020-02-22 12:00] VITALS: BP 109/68
[2020-02-22] MEDS: ENOXAPARIN SODIUM 40 MG/0.4 ML DISP.SYRIN SQ SCH (16:05)
[2020-02-22 16:31] VITALS: BP 99/60
--- NOTE | 2020-02-22 17:19 | NUR ---
RN NOTE SPOKE TO PHARMACY REGARDING THE ELEVATED VANCO TROUGH LEVEL. OK TO GIVE VANCOMYCIN 0.75 PER PHARMACY. SAFETY MAINTAINED, CALL LIGHT WITHIN REACH, WILL CONTINUE TO MONITOR.
[2020-02-22] MEDS: VANCOMYCIN 0.75 GM in IV D5W 250 ML IV SCH (17:49)
[2020-02-22 20:00] VITALS: BP 114/65
--- NOTE | 2020-02-22 23:00 | NUR ---
RN NOTE AMIODARONE DRIP RUNNING ORDERED. STILL UNABLE TO SCAN THE BAG, PHARMACY IS AWARE. RUNNING AT 16.6MLS/HR ORDERED SINCE 1600. ORDERED TO RUN FOR 18HRS AT 16.6MLS/HR. PATIENT IS CURRENTLY IN SINUS RHYTHM, HEART RATE IS IN THE 80S. PATIENT SAFETY IS BEING MAINTAINED, CALL LIGHT WITHIN REACH, WILL CONTINUE TO MONITOR CLOSELY.
[2020-02-23] VITALS: BP 115/74
[2020-02-23] MEDS: HYDROCODONE/APAP 5/325MG TABLET PO PRN ×2 (01:12→11:34)
[2020-02-23 04:00] VITALS: BP 117/73
[2020-02-23] MEDS: PIPERACILLIN /TAZOBACTAM 3.375 G in IV D5W 50 ML IV SCH ×3 (05:25→17:10)
[2020-02-23 06:32] LABS: CALCIUM, SERUM 7.8 mg/dL (8.5-10.1); POTASSIUM 3.3 mmol/L (3.5-5.1)
--- NOTE | 2020-02-23 06:56 | NUR ---
RN CLOSING NOTES PATIENT REMAINED ON AMIODARONE DRIP THROUGHOUT MY SHIFT. HR IS STABLE IN THE 70S, SINUS RHYTHM NOTED. ORDERED TO RUN UNTIL 10AM. PATIENT SAFETY WAS MAINTAINED, CALL LIGHT WITHIN REACH, ENDORSED TO AM NURSE FOR CONTINUITY OF CARE. PATIENT KEPT CLEAN AND DRY, ALL SCHEDULED MEDS GIVEN ON TIME.
--- NOTE | 2020-02-23 08:03 | NUR ---
RN OPENING NOTES RECEIVED PATIENT RESTING IN BED COMFORTABLY, NO S.SX OF DISTRESS AT THIS TIME. PT IS AOX4, VERBAL, AND ON BEDREST. SHE IS ON RA, TOLERATING WELL, NO SOB OR RESP DISTRESS. TELE MONITOR SHOWING SR, PT IS ON AMIODARONE DRIP AT 16.6 ML.HR, TO BE RUNNING UNTIL 1000, WILL F/U WITH . IV SITE ON L WRIST 22 G AND RFA 22 G IS PATENT AND INTACT. SAFETY MEASURES HAVE BEEN IMPLEMENTED, CALL LIGHT IS WITHIN REACH, BED IS IN LOWEST AND LOCKED POSITION, SIDE RAILS UP X2, WILL CONTINUE TO MONITOR FOR ANY CHANGES.
[2020-02-23 08:39] VITALS: BP 117/69
[2020-02-23] MEDS: POLYETHYLENE GLYCOL 3350 17 GM POWD.PACK PO SCH (09:02)
[2020-02-23] MEDS: predniSONE 10 MG TABLET PO SCH (09:02)
[2020-02-23] MEDS: ALLOPURINOL 100 MG TABLET PO SCH (09:02)
[2020-02-23] MEDS: FUROSEMIDE 40 MG TABLET PO SCH (09:02)
[2020-02-23] MEDS: POTASSIUM CHLORIDE 20 MEQ TAB.PRT.SR PO SCH ×4 (09:02→13:40)
[2020-02-23] MEDS: ASCORBIC ACID 500 MG TABLET PO SCH (09:02)
[2020-02-23] MEDS: FAMOTIDINE (20 MG) 20 MG TABLET PO SCH ×2 (09:02→17:41)
[2020-02-23] MEDS: ZINC SULFATE 220 MG CAPSULE PO SCH (09:02)
[2020-02-23] MEDS: Z GUARD REMEDY 2 OZ OINT TP SCH (09:03)
[2020-02-23] MEDS: CARVEDILOL 12.5 MG TABLET PO SCH (09:03)
[2020-02-23] MEDS: THERAHONEY GEL 1.5 OZ TUBE TP SCH (09:03)
[2020-02-23] MEDS ORDERED: POTASSIUM CHLORIDE 20 MEQ TAB.PRT.SR PO SCH (10:00)
[2020-02-23] MEDS ORDERED: Magnesium 1GM/D5W 100ML PREMIX 100 ML IV SCH (10:00)
--- NOTE | 2020-02-23 10:00 | NUR ---
RN NOTES PER DR ARANDA, AMIODARONE DRIP TO BE STOP AT 1100, PT IS NOW ON PO AMIODARONE. WILL CONTINUE TO MONITOR
[2020-02-23 12:40] VITALS: BP 112/70
[2020-02-23] MEDS: ENOXAPARIN SODIUM 40 MG/0.4 ML DISP.SYRIN SQ SCH (15:31)
[2020-02-23 16:20] VITALS: BP 100/66
--- NOTE | 2020-02-23 16:23 | NUR ---
RN NOTES TRANSFER REPORT GIVEN TO RN AT [facility] FOR TRANSFER AT 1900
[2020-02-23] MEDS ORDERED: AMIODARONE HCL 200 MG TABLET PO SCH (17:00)
[2020-02-23 17:46] VITALS: BP 114/65
[2020-02-23] MEDS: VANCOMYCIN 0.75 GM in IV D5W 250 ML IV SCH (17:48)
--- NOTE | 2020-02-23 19:21 | NUR ---
RN NOTES PATIENT HAS BEEN ENDORSED TO NIGHTSHIFT RN FOR FELIPE
--- NOTE | 2020-02-23 19:30 | NUR ---
RN OPEN NOTES PATIENT IS LAYING IN BED. A/O X4. NO SOB/ ACUTE RESPIRATORY DISTRESS NOTED. BED IS IN LOWEST LOCKED POSITION WITH SIDE RAILS UP, SEMI FOWLERS. NO COMPLAINTS OF PAIN AT THE MOMENT. CALL LIGHT IS WITHIN REACH. WILL CONTINUE TO MONITOR.
--- NOTE | 2020-02-23 21:05 | NUR ---
RN NOTES PATIENT WAS PICKED UP VIA [facility] BY [facility]. PATIENT WAS A/O X4. NO SOB/ ACUTE RESPIRATORY DISTRESS NOTED. HAD NO COMPLAINTS OF PAIN. IV ON R WRIST 22G WAS REMOVED.
== END 2020-02-23 21:07 | DRG 853 ==
LOC: ER 22:20 → TELE 23:41 → TELE1 02-17 00:02 → TELE 02-18 11:30 → MED 02-19 08:24 → TELE 02-22 10:15 → MED 02-23 16:21
PROVIDERS: ADMIT Nurse Practitioner Acute Care; ATTEND Nurse Practitioner Acute Care
PROC: 0JB70ZZ Excision of Back Subcutaneous Tissue and Fascia, Open Approach (ICD-10-PCS; principal; 2020-02-19)
DX: A41.9 Sepsis, unspecified organism (principal); L89.153 Pressure ulcer of sacral region, stage 3; J96.91 Respiratory failure, unspecified with hypoxia; I21.4 Non-ST elevation (NSTEMI) myocardial infarction; I50.23 Acute on chronic systolic (congestive) heart failure; J18.9 Pneumonia, unspecified organism; I47.1 Supraventricular tachycardia; I13.0 Hypertensive heart and chronic kidney disease with heart failure and stage 1 through stage 4 chronic kidney disease, or unspecified chronic kidney disease; D68.59 Other primary thrombophilia; G93.40 Encephalopathy, unspecified; J90 Pleural effusion, not elsewhere classified; C92.10 Chronic myeloid leukemia, BCR/ABL-positive, not having achieved remission; E87.2 Acidosis; N18.3 Chronic kidney disease, stage 3 (moderate); Z93.3 Colostomy status; I25.10 Atherosclerotic heart disease of native coronary artery without angina pectoris; R62.7 Adult failure to thrive; D63.8 Anemia in other chronic diseases classified elsewhere; Z91.09 Other allergy status, other than to drugs and biological substances; Z79.899 Other long term (current) drug therapy; M10.9 Gout, unspecified; Z87.19 Personal history of other diseases of the digestive system; Z74.09 Other reduced mobility; R59.0 Localized enlarged lymph nodes; I45.81 Long QT syndrome; Y95 Nosocomial condition; E04.1 Nontoxic single thyroid nodule
CPT/HCPCS: 36415; 71045-TC; 76536-TC; 80048-TC; 80053-TC; 80061-TC; 80076-TC; 80202-TC; 81000-TC; 82550-TC; 82728-TC; 83540-TC; 83605-TC; 83615-TC; 83735-TC; 83880; 84100-TC; 84439-TC; 84443-TC; 84484-TC; 85025-TC; 85378-TC; 85730-TC; 86140-TC; 86850-TC; 87040-TC; 87081-TC; 87086-TC; 93307-TC; 97110-TC; 97112-TC; 97116-TC; 97530-TC; A6253; G0378; J0153; J0282; J1650; J1940; J2060; J2543; J3370; J3475; J7030; J7040; J7050; J7060; Q9967; U0003-CS